=== PATIENT | male | born 1960 | race Caucasian/White ===

== ENCOUNTER 2021-07-04 07:01 | Emergency (ER) | payer MEDICAID ==
[~2021-07-04] VITALS: Ht 180.3 cm; Wt 97.5 kg
[2021-07-04 07:15] VITALS: BP_SYST 146
--- NOTE | 2021-07-04 07:15 | NUR ---
Pt to bed 1 for evaluation. Report given to LISETTE Cochran who will assume care.
--- NOTE | 2021-07-04 07:15 | NUR ---
Pt AAO and ambulatory reporting bilateral hand redness and pain X 3 weeks. Pt's hands appear chapped, dry, red, and in different stages of healing. Pt reports that he has not been in contact with any new chemical such as lotion or detergents. Pt denies any prior medical history and reports pain 9/10 on pain scale.
--- NOTE | 2021-07-04 07:20 | NUR ---
Dr. Parsons at bedside to assess.
--- NOTE | 2021-07-04 07:21 | NUR ---
Pt comes to er with c/o [place] hand rash increasingly getting worse for over 20 days. +urticaria/erythema. Reports going to urgent care 3 days ago and receiving several antibiotics and made rash worse. (on sulfa, and keflex). Also states he has been hiking more recently. Pt denies any SOB or CP. No N/V/D.
--- NOTE | 2021-07-04 07:24 | NUR ---
DR Parsons at bedside for exam.
--- NOTE | 2021-07-04 07:41 | NUR ---
[facility].
[2021-07-04 07:53] LABS: BASOPHILS # (AUTO) 0.1 K/uL (0.0-0.2); BASOPHILS % (AUTO) 0.9 % (0.0-2.0); EOSINOPHILS # (AUTO) 0.4 K/uL (0.0-0.4); HEMATOCRIT 45.7 % (36-54); HEMOGLOBIN 15.7 g/dL (14.0-18.0); LYMPHOCYTES # (AUTO) 2.3 K/uL (1.0-5.5); LYMPHOCYTES % (AUTO) 28.9 % (20.5-51.5); MEAN CORPUSCULAR HEMOGLOBIN 33 pg (27-31); MEAN CORPUSCULAR HGB CONC 34 % (32-36); MEAN CORPUSCULAR VOLUME 96 fL (79.0-98.0); MONOCYTES # (AUTO) 0.8 K/uL (0.0-1.0); MONOCYTES % (AUTO) 10.4 % (1.7-9.3); NEUTROPHILS # (AUTO) 4.4 K/uL (1.8-7.7); NEUTROPHILS % (AUTO) 54.8 % (40.0-70.0); PLATELET COUNT (AUTO) 100 K/uL (130-430); RED BLOOD CELL COUNT(AUTO) 4.75 MIL/uL (4.2-6.2)
[2021-07-04 08:03] LABS: ANION GAP 7 (5-15); CALCIUM 9.3 mg/dL (8.4-11.0); CHLORIDE 101 mmol/L (98-107); GLUCOSE 106 mg/dL (70-99); POTASSIUM 5.1 mmol/L (3.5-5.1); SODIUM SERUM 136 mmol/L (136-145); UREA NITROGEN, BLOOD 20 mg/dL (8-21)
[2021-07-04 08:06] LABS: GFR AFRICAN AMERICAN 88 mL/min (>90)
[2021-07-04 08:08] LABS: PROTHROMBIN TIME 10.7 SECS (9.5-12.5)
[2021-07-04 08:16] LABS: ALANINE AMINOTRANSFERASE 110 U/L (12-78); ALBUMIN 3.5 g/dL (3.4-4.8); ASPARTATE AMINOTRANSFERASE 81 U/L (10-37); TOTAL BILIRUBIN 0.4 mg/dL (0.0-1.0)
[2021-07-04 08:44] LABS: C-REACTIVE PROTEIN QUANT < 0.2 mg/dL (0-0.5)
[2021-07-04] MEDS ORDERED: PRED20TA PO (09:05)
--- NOTE | 2021-07-04 09:27 | NUR ---
Patient given written and verbal discharge instructions and verbalizes understanding. ER MD discussed with patient the results and treatment provided. Patient in stable condition. ID arm band removed. Rx of PREDNISONE given. Patient educated on pain management and to follow up with PMD. Pain Scale . Opportunity for questions provided and answered. Medication side effect fact sheet provided.
[2021-07-04 09:28] VITALS: BP_SYST 138
== END 2021-07-04 09:28 | disposition home or self-care (01) ==
LOC: SED 07:01
DX: L25.9 Unspecified contact dermatitis, unspecified cause (principal); Z88.1 Allergy status to other antibiotic agents; Z88.8 Allergy status to other drugs, medicaments and biological substances
CPT/HCPCS: 36415; 80053; 83605; 85025; 85610-TC; 85730-TC; 86140; 99283

== ENCOUNTER 2021-07-23 10:19 | Emergency (ER) | payer MEDICAID ==
[~2021-07-23] VITALS: Ht 180.3 cm; Wt 99.8 kg
[~2021-07-23 10:19] MED LIST: PRED20TA PO
[2021-07-23 10:40] VITALS: BP_SYST 151
[2021-07-23] MEDS ORDERED: PRED10TA PO (10:56)
[2021-07-23 11:15] VITALS: BP_SYST 151
== END 2021-07-23 11:15 | disposition home or self-care (01) ==
LOC: SED 10:19
DX: L25.9 Unspecified contact dermatitis, unspecified cause (principal); Z87.891 Personal history of nicotine dependence; Z88.1 Allergy status to other antibiotic agents
CPT/HCPCS: 99282; 99283

== ENCOUNTER 2021-09-15 12:06 | Emergency (ER) | payer MEDICAID ==
[~2021-09-15] VITALS: Ht 177.8 cm; Wt 99.8 kg
[2021-09-15 12:06] VITALS: BP_SYST 139
[~2021-09-15 12:06] MED LIST changes: +PRED10TA PO
[2021-09-15] MEDS ORDERED: BEN50 PO (13:39)
[2021-09-15] MEDS ORDERED: FAMO-132 PO (13:39)
[2021-09-15] MEDS ORDERED: TRIA80OI TP (13:43)
[2021-09-15] MEDS ORDERED: DIPHENHYDRAMINE HCL 50 MG CAPSULE PO ONE (13:45)
[2021-09-15] MEDS ORDERED: TRIAMCINOLONE ACETONIDE 0.025% 80 GM CREAM.GM. TP ONE (13:45)
[2021-09-15] MEDS ORDERED: predniSONE 20 MG TABLET PO ONE (13:45)
[2021-09-15] MEDS ORDERED: FAMOTIDINE 20 MG TABLET PO ONE (13:45)
[2021-09-15] MEDS ORDERED: PRED20TA PO (13:52)
[2021-09-15] MEDS ORDERED: PRED10TA PO (13:52)
[2021-09-15 14:05] VITALS: BP_SYST 157
== END 2021-09-15 14:10 | disposition home or self-care (01) ==
LOC: SED 12:06
DX: L25.9 Unspecified contact dermatitis, unspecified cause (principal); R03.0 Elevated blood-pressure reading, without diagnosis of hypertension; Z79.899 Other long term (current) drug therapy; Z88.1 Allergy status to other antibiotic agents
CPT/HCPCS: 99284; J7512; Q0163

== ENCOUNTER 2022-07-22 19:00 | Emergency (ER) | payer MEDICAID ==
[~2022-07-22] VITALS: Ht 177.8 cm; Wt 108.9 kg
[~2022-07-22 19:00] MED LIST changes: +BEN50 PO; +FAMO-132 PO; +TRIA80OI TP
[2022-07-22 19:30] VITALS: BP_SYST 153
[2022-07-22] MEDS ORDERED: IBUPROFEN 800 MG TABLET PO ONE (20:00)
[2022-07-22] MEDS ORDERED: HYDROcodone/ACETAMIN 10-325 MG TAB PO ONE (20:00)
[2022-07-22] MEDS ORDERED: IBUPROFEN 800 MG TABLET ONE (22:54)
[2022-07-22 23:13] VITALS: BP_SYST 142
== END 2022-07-22 23:11 | disposition home or self-care (01) ==
LOC: SED 19:00
DX: S39.012A Strain of muscle, fascia and tendon of lower back, initial encounter (principal); S13.4XXA Sprain of ligaments of cervical spine, initial encounter; Z88.1 Allergy status to other antibiotic agents; Z79.899 Other long term (current) drug therapy; V89.2XXA Person injured in unspecified motor-vehicle accident, traffic, initial encounter; Y93.89 Activity, other specified; Y92.89 Other specified places as the place of occurrence of the external cause; Y99.8 Other external cause status
CPT/HCPCS: 71045; 72040-TC; 72100-TC; 72170-TC; 99284

== ENCOUNTER 2023-01-21 20:01 | Emergency (ER) | payer MEDICAID ==
[~2023-01-21] VITALS: Ht 177.8 cm; Wt 108.9 kg
[2023-01-21 20:16] VITALS: BP_SYST 156; PULSE 70; RESP 16; TEMP 97.1; O2SAT 97
--- NOTE | 2023-01-21 20:23 | NUR ---
PT TRIAGED, PRESENTS TO ED WITH RIGHT FINGER SPLINTER FROM PALM PLANT UNDER NAIL, SWELLING TO RIGHT FINGER PT IN IN 8/ PAIN. PT WENT TO XRAY AND WILL BE SEATED IN HALLWAY WHEN BACK FROM IMAGING.
--- NOTE | 2023-01-21 20:27 | NUR ---
PT TO CHAIR [address] TO ASSESS. NAD, VSS, EVEN UNLABORED BREATHING
--- NOTE | 2023-01-21 20:28 | NUR ---
ER at bedside examining patient.
[2023-01-21] MEDS ORDERED: IBUPROFEN 800 MG TABLET PO ONE (20:30)
[2023-01-21] MEDS ORDERED: cephALEXin 500 MG CAPSULE PO ONE (20:30)
[2023-01-21] MEDS ORDERED: LIDOCAINE 2%, 20 ML MDV INJ ONE (20:30)
--- NOTE | 2023-01-21 20:59 | NUR ---
MD AT BEDSIDE FOR ASSESSMENT, LACERATION TRAY SET UP BY KA[facility], NO SPLINTER FOUND ON EXAMINATION BY
--- NOTE | 2023-01-21 21:05 | NUR ---
TECH AT BEDSIDE FOR WOUND CARE
[2023-01-21] MEDS ORDERED: BACITRACIN 1 GM OINT TP ONE (21:07)
[2023-01-21] MEDS ORDERED: DIPHTH,PERTUSS(ACELL),TET VAC 0.5 ML VIAL (Tdap) I.M. ONE (21:15)
[2023-01-21] MEDS ORDERED: BACITRACIN ZINC 15 GM TOPICAL OINTMENT TP ONE (21:15)
[2023-01-21] MEDS ORDERED: CEPH-548 PO (21:17)
[2023-01-21] MEDS ORDERED: IBUP-1971 PO (21:17)
[2023-01-21] MEDS ORDERED: BACI15OI13 TP (21:17)
--- NOTE | 2023-01-21 21:27 | NUR ---
Patient given written and verbal discharge instructions and verbalizes understanding. ER MD discussed with patient the results and treatment provided. Patient in stable condition. ID arm band removed. INSTRUCTED TO RETURN FOR WORSENING SYMPTOMS. Rx of given. Patient educated on pain management and to follow up with PMD. Pain Scale 3/10.PATIENT NOTED WALKING WITH STABLE GAIT TO PRIVATE CAR Opportunity for questions provided and answered. Medication side effect fact sheet provided.
[2023-01-21 21:29] VITALS: BP_SYST 127; PULSE 76; RESP 18; TEMP 97.6; O2SAT 97
== END 2023-01-21 21:29 | disposition home or self-care (01) ==
LOC: SED 20:01
DX: S61.230A Puncture wound without foreign body of right index finger without damage to nail, initial encounter (principal); Z88.1 Allergy status to other antibiotic agents; Z79.899 Other long term (current) drug therapy; X58.XXXA Exposure to other specified factors, initial encounter; Y93.89 Activity, other specified; Y92.89 Other specified places as the place of occurrence of the external cause; Y99.8 Other external cause status
CPT/HCPCS: 99284; 10060; 73140; 90715; 90471; J2001

== ENCOUNTER 2023-04-30 08:30 | Emergency (ER) | payer MEDICAID ==
[~2023-04-30] VITALS: Ht 177.8 cm; Wt 113.4 kg
[~2023-04-30 08:30] MED LIST changes: +BACI15OI13 TP; +CEPH-548 PO; +IBUP-1971 PO
[2023-04-30 08:37] VITALS: BP_SYST 146; PULSE 80; RESP 20; TEMP 98.3; O2SAT 96
[2023-04-30 09:14] LABS: BASOPHILS # (AUTO) 0.1 K/uL (0.0-0.2); BASOPHILS % (AUTO) 0.8 % (0.0-2.0); EOSINOPHILS # (AUTO) 0.6 K/uL (0.0-0.4); EOSINOPHILS % (AUTO) 8.4 % (0.0-4.0); HEMATOCRIT 48.2 % (36-54); HEMOGLOBIN 16.3 g/dL (14.0-18.0); LYMPHOCYTES # (AUTO) 2.2 K/uL (1.0-5.5); MEAN CORPUSCULAR HEMOGLOBIN 33 pg (27-31); MEAN CORPUSCULAR HGB CONC 34 % (32-36); MEAN CORPUSCULAR VOLUME 98 fL (79.0-98.0); MONOCYTES # (AUTO) 0.8 K/uL (0.0-1.0); MONOCYTES % (AUTO) 11.5 % (1.7-9.3); NEUTROPHILS # (AUTO) 3.5 K/uL (1.8-7.7); NEUTROPHILS % (AUTO) 48.3 % (40.0-70.0); PLATELET COUNT (AUTO) 109 K/uL (130-430); RED BLOOD CELL COUNT(AUTO) 4.94 MIL/uL (4.2-6.2); RED CELL DISTRIBUTION WIDTH 13.8 % (9.0-15.0); WHITE BLOOD COUNT (AUTO) 7.1 K/uL (4.8-10.8)
[2023-04-30 09:24] LABS: CALCIUM 7.5 mg/dL (8.4-11.0); CREATININE 0.9 mg/dL (0.55-1.30); POTASSIUM 4.1 mmol/L (3.5-5.1)
[2023-04-30 09:38] LABS: ALBUMIN 3.4 g/dL (3.4-4.8); TOTAL BILIRUBIN 1.2 mg/dL (0.0-1.0); TOTAL PROTEIN, SERUM 7.7 g/dL (6.4-8.3)
[2023-04-30] MEDS ORDERED: CLIN-22 PO (11:38)
[2023-04-30] MEDS ORDERED: CLOT15CR5 TP (11:38)
[2023-04-30 12:16] VITALS: BP_SYST 141; PULSE 61; RESP 16; TEMP 97.5; O2SAT 95
== END 2023-04-30 12:04 | disposition home or self-care (01) ==
LOC: SED 08:30
DX: B35.4 Tinea corporis (principal); R21 Rash and other nonspecific skin eruption; Z88.1 Allergy status to other antibiotic agents; Z79.899 Other long term (current) drug therapy
CPT/HCPCS: 36415; 73590-TC; 80053; 83605; 85025; 99285

== ENCOUNTER 2023-11-29 17:46 | Emergency (ER) | payer MEDICAID, OTHER ==
[~2023-11-29] VITALS: Ht 180.3 cm; Wt 117.9 kg
[~2023-11-29 17:46] MED LIST changes: +CLIN-22 PO; +CLOT15CR5 TP
[2023-11-29 18:20] VITALS: BP_SYST 135; PULSE 77; RESP 20; TEMP 98.8; O2SAT 98
[2023-11-29] MEDS ORDERED: ACET-2634 PO (21:18)
[2023-11-29] MEDS ORDERED: IBUP-1969 PO (21:18)
[2023-11-29] MEDS: KETOROLAC TROMETHAMINE 30 MG VIAL IM ONE (21:28)
[2023-11-29 21:48] VITALS: BP_SYST 158; PULSE 62; RESP 20; TEMP 98.8; O2SAT 97
== END 2023-11-29 21:48 | disposition home or self-care (01) ==
LOC: SED 17:46
DX: M25.552 Pain in left hip (principal); Z88.1 Allergy status to other antibiotic agents; Z98.890 Other specified postprocedural states; Z79.899 Other long term (current) drug therapy; Z79.2 Long term (current) use of antibiotics
CPT/HCPCS: 99283; 73502; 96372; J1885